=== PATIENT | male | born 1975 | race African-American/Black ===

== ENCOUNTER 2017-06-21 18:51 | Emergency (ER) | payer BC ==
[~2017-06-21] VITALS: Ht 182.9 cm; Wt 104.3 kg
[2017-06-21 18:56] VITALS: BP 163/90
[2017-06-21] MEDS ORDERED: KETOROLAC TROMETH 60MG/2ML VIAL IM ONE (23:45)
[2017-06-21] MEDS ORDERED: CYCLOBENZAPRINE HCL 10 MG TAB PO ONE (23:45)
== END 2017-06-22 00:24 | disposition home or self-care (01) ==
LOC: ER 18:51
DX: R51 Headache (principal); M54.9 Dorsalgia, unspecified; M25.551 Pain in right hip; E66.9 Obesity, unspecified; I10 Essential (primary) hypertension; V43.52XA Car driver injured in collision with other type car in traffic accident, initial encounter; Y93.89 Activity, other specified; Y99.8 Other external cause status; Y92.89 Other specified places as the place of occurrence of the external cause